=== PATIENT | female | born 1985 | race African-American/Black ===

== ENCOUNTER 2019-08-06 20:35 | Emergency (ER) | payer OTHER, SELFPAY ==
[~2019-08-06] VITALS: Ht 162.6 cm; Wt 86.4 kg
[2019-08-06 20:54] VITALS: BP 128/73
[2019-08-06] MEDS ORDERED: ACETAMINOPHEN 325 MG TAB PO ONE (21:30)
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
[2019-08-06] MEDS ORDERED: CYCL10TA PO (23:26)
[2019-08-06] MEDS ORDERED: IBUP-1022 PO (23:26)
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
[2019-08-06] MEDS ORDERED: IBUPROFEN 600 MG TAB PO ONE (23:30)
[2019-08-06] MEDS ORDERED: carisoprodoL 350 MG TAB PO ONE (23:30)
== END 2019-08-06 23:44 | disposition home or self-care (01) ==
LOC: M ED 20:35
DX: S13.4XXA Sprain of ligaments of cervical spine, initial encounter (principal); S23.3XXA Sprain of ligaments of thoracic spine, initial encounter; V49.40XA Driver injured in collision with unspecified motor vehicles in traffic accident, initial encounter; Y92.9 Unspecified place or not applicable; Y93.9 Activity, unspecified; Y99.9 Unspecified external cause status; Z79.899 Other long term (current) drug therapy